=== PATIENT | female | born 1995 | race Hispanic/Latino ===

== ENCOUNTER 2023-09-14 09:01 | Day surgery (SDC) | payer OTHER ==
[~2023-09-14 09:01] MED LIST: Acetaminophen 325 MG TAB PO PRN; Iron Sucrose Complex 500 MG in Sodium Chloride 0.9% 250 ML 250 ML IVPB SCH; diphenhydrAMINE 25 MG CAP PO PRN
[2023-09-14] MEDS: Ferumoxytol (NON ERSD) 510 MG in 0.9 % Sodium Chloride 150 ML IVPB SCH (09:55)
[2023-09-14] MEDS ORDERED: diphenhydrAMINE 25 MG CAP ONE (10:18)
[2023-09-14] MEDS: diphenhydrAMINE 25 MG CAP PO PRN (10:19)
[2023-09-14 13:36] VITALS: TEMP 98.2
[2023-09-14 13:55] VITALS: BP 112/70
== END 2023-09-14 13:57 | disposition home or self-care (01) ==
LOC: ONC/OP 09:01
PROVIDERS: ATTEND Family Medicine
DX: D50.9 Iron deficiency anemia, unspecified (principal)
CPT/HCPCS: 96365; 96366; Q0138